=== PATIENT | male | born 1995 | race African-American/Black ===

== ENCOUNTER 2021-10-17 04:34 | Emergency (ER) | payer OTHER ==
[~2021-10-17] VITALS: Ht 177.8 cm; Wt 72.6 kg
[2021-10-17 04:35] VITALS: BP 138/84
[2021-10-17] MEDS ORDERED: ALBU0.0912 IH (04:55)
[2021-10-17] MEDS ORDERED: DEXAMETHASONE 4 MG/ML VIAL IM ONE (04:55)
[2021-10-17] MEDS ORDERED: PRED20TA5 PO (04:55)
[2021-10-17] MEDS ORDERED: ALBUTEROL SULFATE/IPRATROPIU 3 ML SOL IH ONE (04:55)
--- NOTE | 2021-10-17 05:01 | NUR ---
covid swab collected and taken to lab.
--- NOTE | 2021-10-17 05:09 | NUR ---
RT in triage with pt for breathing tx.
--- NOTE | 2021-10-17 05:30 | NUR ---
Patient discharged with v/s stable. Written and verbal after care instructions given and explained. Patient alert, oriented and verbalized understanding of instructions. Ambulatory with steady gait. All questions addressed prior to discharge. ID band removed. Patient advised to follow up with PMD. Rx of ALBUTEROL AND DELTASONE given. Patient educated on indication of medication including possible reaction and side effects. Opportunity to ask questions provided and answered.
== END 2021-10-17 05:30 | disposition home or self-care (01) ==
LOC: MED 04:34
DX: J45.901 Unspecified asthma with (acute) exacerbation (principal); Z20.822 Contact with and (suspected) exposure to COVID-19; F22 Delusional disorders; Z79.899 Other long term (current) drug therapy
CPT/HCPCS: 87426; 94640; 96372; 99283; J1100